=== PATIENT | male | born 1995 | race Caucasian/White ===

== ENCOUNTER → 2019-09-25 | Outpatient (CLI) | payer OTHER | END | disposition home or self-care (01) | LOC: STAR 12:14 | PROVIDERS: ATTEND Anesthesiology | DX: Z01.818 Encounter for other preprocedural examination (principal); Z11.59 Encounter for screening for other viral diseases | CPT/HCPCS: 36415; 87635 ==

== ENCOUNTER 2019-09-28 05:58 | Day surgery (SDC) | payer OTHER ==
[~2019-09-28] VITALS: Ht 175.3 cm; Wt 66.6 kg
[2019-09-28] MEDS ORDERED: BACITRACIN 50,000 UNIT ONE (06:21)
[2019-09-28] MEDS ORDERED: ROPIvacaine/PF 0.5%, 30 ML ONE (06:21)
[2019-09-28] MEDS ORDERED: LIDOCAINE/PF 1%-EPI 1:200K, 30 ML ONE (06:21)
[2019-09-28] MEDS ORDERED: morphine SULFATE/PF 1 MG/ML, 10ML ONE (06:21)
[2019-09-28] MEDS ORDERED: LACTATED RINGERS 1,000 ML IV SCH (06:40)
[2019-09-28 06:43] VITALS: BP 119/76
[2019-09-28] MEDS ORDERED: PLEASE ENTER ALLERGIES MC SCH (07:00)
[2019-09-28] MEDS ORDERED: CHLORHEXIDINE 15 ML UDC MM ONE (07:00)
[2019-09-28] MEDS ORDERED: FENTANYL PF 100 MCG/2ML ONE ×3 (07:04→10:21)
[2019-09-28] MEDS ORDERED: MIDAZOLAM 1 MG/ML, 2ML ONE (07:04)
[2019-09-28] MEDS ORDERED: HYDROmorphone 1 MG/ML, 1ML INJ IVPush PRN (09:00)
[2019-09-28] MEDS ORDERED: LABETALOL 5MG/ML, 20ML IV PRN (09:00)
[2019-09-28] MEDS ORDERED: hydrALAzine 20 MG/ML, 1ML IV PRN (09:00)
[2019-09-28] MEDS ORDERED: PROMETHAZINE 25 MG/ML, 1ML IVPush PRN (09:00)
[2019-09-28] MEDS ORDERED: MEPERIDINE/PF 25MG/0.5ML IVPush PRN (09:00)
[2019-09-28] MEDS ORDERED: ACETAMINOPHEN 325 MG TABLET PO PRN (09:00)
[2019-09-28] MEDS ORDERED: ALBUTEROL SULFATE 2.5 MG/3 ML NPPB PRN (09:00)
[2019-09-28] MEDS ORDERED: LORazepam 2 MG/ML, 1ML IVPush PRN (09:00)
[2019-09-28] MEDS ORDERED: PROPOFOL 10 MG/ML, 20ML ONE (09:08)
[2019-09-28] MEDS ORDERED: DEXAMETHASONE 4 MG/ML, 1ML ONE (09:08)
[2019-09-28] MEDS ORDERED: KETOROLAC 30 MG/1 ML ONE (09:08)
[2019-09-28] MEDS ORDERED: ONDANSETRON 2MG/ML, 2ML ONE (09:08)
[2019-09-28] MEDS ORDERED: CEFAZOLIN 1,000 MG ONE (09:08)
[2019-09-28] MEDS ORDERED: BUPIVACAINE/PF 0.5% ONE (09:08)
[2019-09-28] MEDS ORDERED: MEPERIDINE/PF 25MG/ML,1ML ONE (10:22)
[2019-09-28] MEDS ORDERED: OXYcodone 5 MG/5 ML ORAL.SOL UDC ONE (10:22)
[2019-09-28] MEDS: FENTANYL PF 100 MCG/2ML IV PRN ×2 (10:23→10:28)
[2019-09-28] MEDS: OXYcodone 5 MG/5 ML ORAL.SOL UDC PO PRN ×2 (10:25→11:51)
== END 2019-09-28 12:15 | disposition home or self-care (01) ==
LOC: OUT 05:58
PROVIDERS: ATTEND Orthopaedic Surgery
DX: S83.511A Sprain of anterior cruciate ligament of right knee, initial encounter (principal); S83.282A Other tear of lateral meniscus, current injury, left knee, initial encounter; G89.18 Other acute postprocedural pain; F17.210 Nicotine dependence, cigarettes, uncomplicated; X50.1XXA Overexertion from prolonged static or awkward postures, initial encounter; Y93.23 Activity, snow (alpine) (downhill) skiing, snowboarding, sledding, tobogganing and snow tubing; Y92.89 Other specified places as the place of occurrence of the external cause; Y99.8 Other external cause status
CPT/HCPCS: 29881; 29888; 64447; 73560; 76000; C1713; J0690; J1100; J1885; J2175; J2250; J2405; J2704; J2795; J3010; J3490; J2274